=== PATIENT | male | born 1960 | race Caucasian/White ===

== ENCOUNTER 2024-02-13 10:52 | Inpatient (IN) | payer OTHER ==
[2024-02-13] MEDS ORDERED: Acetaminophen 650 MG Suppository PR PRN (12:17)
[2024-02-13 12:35] VITALS: BMI 28.8
[2024-02-13] MEDS: Amlodipine 5 MG TAB PO SCH (21:27)
[2024-02-13] MEDS: Atorvastatin Calcium 20 MG TAB PO SCH (21:28)
[2024-02-13] MEDS: hydrALAZINE 10 MG TAB PO SCH (21:28)
[2024-02-13] MEDS: Vancomycin 1 GM in Premix 1 BAG IVPB SCH (21:28)
[2024-02-13] MEDS: Terbinafine 250 MG TAB PO SCH (21:28)
[2024-02-14] MEDS: cefTRIAXone\\ROCEPHIN 1 GM in Sodium Chloride 0.9% 100 ML IVPB SCH (05:08)
[2024-02-14 05:36] LABS: Vancomycin, Random 15.8 ug/mL (See Comment)
[2024-02-14] MEDS: cefTRIAXone (ROCEPHIN) 1 GM VIAL ONE (05:54)
[2024-02-14] MEDS: Enoxaparin 40 MG (0.4 mL) SYRINGE SC SCH (07:15)
[2024-02-14] MEDS: Losartan 25 MG TAB PO SCH (08:50)
[2024-02-14] MEDS: Hydrochlorothiazide 25 MG TAB PO SCH (08:50)
[2024-02-14] MEDS: Dextrose 5 % And 0.9 % NaCl 1,000 ML IV SCH (08:54)
[2024-02-14 09:19] LABS: #Basophils 0.05 10x3/uL (0.0-0.2); %Basophils 0.6 % (0.0-1.0); %Eosinophils 3.6 % (0.0-10.0); %Lymphocytes 24.1 % (21.0-51.0); %Monocytes 9.2 % (0.0-10.0); Hemoglobin 12.7 g/dL (14.0-18.0); Mean Corpuscular HGB CONC 34.3 g/dL (32.0-36.0); Mean Corpuscular Hemoglobin 29.4 pg (27.0-31.0); Mean Corpuscular Volume 85.6 fL (78.0-98.0); Mean Platelet Volume 8.5 fL (7.4-10.4); Platelet Count 277 10x3/uL (130-400); RBC Distribution Width 12.2 % (11.5-14.5); Red Blood Cell (RBC) Count 4.32 mill/uL (4.70-6.10)
[2024-02-14 09:34] LABS: Anion Gap 13 mmol/L (10-20); BUN (Urea Nitrogen) 21 mg/dL (8.4-25.7); Calc. Creatinine Clearance 83 mL/min (70-130); Calcium 8.7 mg/dL (7.8-10.44); Carbon Dioxide 21 mmol/L (23-31); Chloride 110 mmol/L (98-107); Estimated GFR 73; Glucose 103 mg/dL (80-115); Sodium 140 mmol/L (136-145)
[2024-02-14 09:35] LABS: INR-International Normal Ratio 1.1; Prothrombin Time 14.2 sec (12.0-14.7)
[2024-02-14] MEDS ORDERED: Midazolam HCl 2 mg/2 ml Vial ONE (12:01)
[2024-02-14] MEDS ORDERED: Lidocaine 2% PF 5 ML VIAL ONE (15:28)
[2024-02-14] MEDS ORDERED: fentaNYL PF 100 MCG/2 ML SYRINGE ONE (15:28)
[2024-02-14] MEDS ORDERED: Dexamethasone 4 mg/ml Vial ONE (15:28)
[2024-02-14] MEDS ORDERED: Ondansetron PF 4 MG/2 ML Vial ONE (15:28)
[2024-02-14] MEDS ORDERED: HYDROmorphone 2 MG/ML VIAL ONE (16:32)
[2024-02-14] MEDS ORDERED: PROPOFOL 200 MG/20 ML VIAL ONE (16:45)
[2024-02-14] MEDS: Acetaminophen 325 MG TAB PO PRN (18:40)
[2024-02-15 05:31] LABS: #Basophils 0.06 10x3/uL (0.0-0.2); %Basophils 0.8 % (0.0-1.0); %Eosinophils 4.9 % (0.0-10.0); %Lymphocytes 31.7 % (21.0-51.0); %Monocytes 10.8 % (0.0-10.0); %Neutrophils 51.3 % (42.0-75.0); Hematocrit 35.6 % (42.0-52.0); Mean Corpuscular HGB CONC 33.7 g/dL (32.0-36.0); Mean Corpuscular Hemoglobin 29.4 pg (27.0-31.0); Mean Corpuscular Volume 87.3 fL (78.0-98.0); Mean Platelet Volume 8.4 fL (7.4-10.4); Platelet Count 281 10x3/uL (130-400); RBC Distribution Width 12.3 % (11.5-14.5); Red Blood Cell (RBC) Count 4.08 mill/uL (4.70-6.10)
[2024-02-15 05:57] LABS: Anion Gap 13 mmol/L (10-20); BUN (Urea Nitrogen) 21 mg/dL (8.4-25.7); Calc. Creatinine Clearance 82 mL/min (70-130); Calcium 8.6 mg/dL (7.8-10.44); Carbon Dioxide 23 mmol/L (23-31); Chloride 105 mmol/L (98-107); Estimated GFR 72; Glucose 102 mg/dL (80-115); Potassium 3.7 mmol/L (3.5-5.1); Sodium 137 mmol/L (136-145)
[2024-02-15] MEDS: Senokot S 8.6-50 MG TAB PO SCH ×2 (13:11→20:46)
[2024-02-15] MEDS: Morphine 2 MG/ML VIAL SLOW IVP PRN (13:11)
[2024-02-15 17:16] VITALS: BMI 28.8
[2024-02-15] MEDS: Polyethylene Glycol 3350 17 GM Packet PO SCH (18:41)
[2024-02-16 06:22] LABS: Vancomycin, Random 18.4 ug/mL (See Comment)
[2024-02-16] MEDS: Polyethylene Glycol 3350 17 GM Packet PO SCH (08:44)
[2024-02-16 12:03] VITALS: BP 162/89; TEMP 97.7
== END 2024-02-16 16:42 | disposition home or self-care (01) | DRG 464 ==
LOC: SURG A 10:52
PROVIDERS: ADMIT Internal Medicine; ATTEND Internal Medicine
PROC: 0JBN0ZZ Excision of Right Lower Leg Subcutaneous Tissue and Fascia, Open Approach (ICD-10-PCS; principal; 2024-02-14)
DX: M70.41 Prepatellar bursitis, right knee (principal); L03.116 Cellulitis of left lower limb; N17.9 Acute kidney failure, unspecified; I10 Essential (primary) hypertension; E78.5 Hyperlipidemia, unspecified; Z98.890 Other specified postprocedural states; Z90.49 Acquired absence of other specified parts of digestive tract; Z79.899 Other long term (current) drug therapy; N40.0 Benign prostatic hyperplasia without lower urinary tract symptoms
CPT/HCPCS: 36415; 80048; 80202; 85025; 85610; 87070; 87077; 87186; 87205; 97139; J0696; J1100; J1171; J1650; J2250; J2272; J2405; J2704; J3370; J7042